=== PATIENT | male | born 1970 | race Two or more races ===

== ENCOUNTER 2016-10-29 14:01 | Emergency (ER) | payer OTHER ==
--- NOTE | ~2016-10-29 | CT71 ---
[facility] A Service [facility] RADIOLOGY TEXT RESULTS PATIENT: JASMINA MOTA LOCATION: SED : 66 UNIT #: [id number] AGE: [address]: Christian Santacruz MD SEX: M ORDER DR: [id number] [address] [address] [id number] E MR#: [id number] Acc #: [id number] NAME: JASMINA MOTA : 1970 SEX: M STUDY DATE/TIME: 10/29/2016 13:35 UNIT: SED ROOM: STUDY DESCRIPTION: CT Head Wo Contrast Attending Physician: Christian Santacruz M.D. Ordering Physician: Christian Santacruz M.D. Primary Care Physician: [facility] MEDICAL IMAGING REPORT This report is preliminary unless electronic signature is present. EXAM Head CT without contrast, 10/29/2016. COMPARISON STUDIES Head CT, 06/03/2016. HISTORY Hypertension, dizziness for 2 weeks. TECHNIQUE Axial noncontrast images were obtained from the skull base to the vertex. This CT exam was performed with one or more of the following radiation dose reduction techniques: automatic exposure control, adjustment of mA and/or kV according to patient size, and iterative reconstruction. FINDINGS Ventricular size and configuration are normal. There is no evidence of acute infarct or hemorrhage. There are no extraaxial fluid collections. No mass lesion or mass effect is seen. There are no skull fractures. IMPRESSION Normal noncontrast head CT. Dictated by... Juliet Samaniego M.D. THIS IS AN ELECTRONICALLY VERIFIED REPORT Juliet Samaniego M.D. at 10/30/2016 5:01 PM JENNIFER/inder [facility] A [facility] RADIOLOGY TEXT RESULTS PATIENT: JASMINA MOTA LOCATION: SED : 66 UNIT #: [id number] AGE: [address]: Christian Santacruz MD SEX: M ORDER DR: TD: 10/29/2016 17:14 JOB #: [id number] MEDICAL IMAGING REPORT
--- NOTE | ~2016-10-29 | EKG ---
PATIENT: JASMINA MOTA UNIT #: [id number] Ventricular Rate: 73 BPM Atrial Rate: 73 BPM P-R Interval: 168 ms QRS Duration: 74 ms Q-T Interval: 398 ms QTC Calculation(Bezet): 438 ms P [place]: 68 degrees Calculated R [place]: 40 degrees Calculated T [place]: 53 degrees Diagnosis Line: Normal sinus rhythm Diagnosis Line: Normal ECG Diagnosis Line: Diagnosis Line: Confirmed by JAMES COBOS MD ([id number]) on Diagnosis Line: 12/12/2016 7:00:52 AM INTERPRETING JATINDER DELATORRE
[2016-10-29 14:01] LABS: BASOPHIL# 0.1 X10e3 (0-0.3); BASOPHIL% 0.8 % (0-2.5); EOSINOPHIL# 0.2 X10e3 (0-0.7); EOSINOPHIL% 3.6 % (0.0-7.0); HEMATOCRIT 40.6 % (38.0-50.0); HEMOGLOBIN 12.9 gm/dL (13.0-16.0); LYMPHOCYTE# 1.8 X10e3 (1.0-3.5); LYMPHOCYTE% 26.5 % (17.0-45.0); MEAN CELL VOLUME 72.7 FL (83-96); MEAN CORPUSCULAR HGB CONC 31.7 g/dL (30-36); MONOCYTE# 0.8 X10e3 (0-1.0); MONOCYTE% 11.8 % (3.0-12.0); NEUTROPHIL# 3.8 X10e3 (1.5-7.1); NEUTROPHIL% 57.3 % (40-75); PLATELET COUNT 273 X10e3 (140-420); RED BLOOD COUNT 5.58 X10e (3.90-5.60); RED CELL DISTRIBUTION WIDTH 16.2 % (11.0-15.5); WHITE BLOOD COUNT 6.7 X10e3 (4.0-10.5)
[~2016-10-29 14:01] MED LIST: ACID CONTROL20 MG PO; ALBUTEROL17 GM INH; AMOXICILLIN PO; BARACLUDE0.5 MG PO; CARVEDILOL12.5 MG PO; COREG6.25 MG PO; DILTIAZEM 24HR120 MG PO; FLECAINIDE ACET50 MG PO; HYDROCHLOROTHIA25 MG PO; K-DUR20 ME2 PO; KCL PO; LIPITOR20 MG PO; MONTELUKAST SOD10 MG PO; PANTOPRAZOLE SO40 MG PO; PHENERGAN25 M1 PO; PRADAXA150 MG PO; PROTONIX PO; SINGULAIR PO; SYMBICORT INH; SYMBICORT80 INH; VIREAD300 MG PO; ZOFRAN ODT4 MG PO; ZOFRAN PO; ZYRTEC10 M1 PO
[2016-10-29 14:04] LABS: DIFF IND NO
[2016-10-29 14:18] LABS: POC - CKMB <1.0 ng/mL (0.0-7.9); POC - MYOGLOBIN 72.3 ng/mL (0.0-169.0)
[2016-10-29 14:19] LABS: POC - TROPONIN <0.05 ng/mL (<=0.05)
[2016-10-29 14:31] LABS: ALBUMIN SERUM 3.6 g/dL (3.5-5.0); ALKALINE PHOSPHATASE 56 U/L (32-92); ALT (SGPT) 23 U/L (10-40); AST (SGOT) 19 U/L (10-42); BILIRUBIN, DIRECT 0.1 mg/dL (0.0-0.2); BILIRUBIN,INDIRECT 0.5 mg/dL (0.0-0.9); BILIRUBIN,TOTAL 0.6 mg/dL (0.2-2.0); BLOOD UREA NITROGEN 13 mg/dL (9-23); BUN/CREATININE RATIO 14.44; CALCIUM SERUM 8.8 mg/dL (8.4-10.2); CARBON DIOXIDE 27 mmol/L (22-31); CHLORIDE 102 mmol/L (100-111); CREATININE SERUM 0.9 mg/dL (0.6-1.4); GLOM FILT RATE Estimated ABOVE60 mL/min (>60); GLUCOSE FASTING 113 mg/dL (70-110); POTASSIUM 3.5 mmol/L (3.5-5.1); PROTEIN TOTAL SERUM 6.6 g/dL (6.0-8.3); SODIUM 137 mmol/L (135-145)
[2016-11-10] MEDS ORDERED: NORVASC PO (18:09)
== END 2016-10-29 15:04 | disposition home or self-care (01) ==
LOC: SED 14:01
PROVIDERS: Emergency Medicine
DX: I10 Essential (primary) hypertension (principal); I48.91 Unspecified atrial fibrillation; J45.909 Unspecified asthma, uncomplicated; Z88.8 Allergy status to other drugs, medicaments and biological substances
CPT/HCPCS: 36415; 70450; 80048; 80076; 82553; 82947; 83874; 84484; 85025; 93005; 99284

== ENCOUNTER 2016-10-30 23:19 | Emergency (ER) | payer OTHER ==
[2016-11-10] MEDS ORDERED: NORVASC PO (18:09)
== END 2016-10-30 23:40 | disposition home or self-care (01) ==
LOC: CED 23:19
DX: I10 Essential (primary) hypertension (principal); F41.9 Anxiety disorder, unspecified
CPT/HCPCS: 99283

== ENCOUNTER 2016-11-10 19:34 | Emergency (ER) | payer OTHER ==
[~2016-11-10 19:34] MED LIST changes: +NORVASC PO
== END 2016-11-10 21:36 | disposition home or self-care (01) ==
LOC: CED 19:34
DX: R51 Headache (principal); G89.29 Other chronic pain; F41.9 Anxiety disorder, unspecified; J45.909 Unspecified asthma, uncomplicated; I10 Essential (primary) hypertension; K21.9 Gastro-esophageal reflux disease without esophagitis; I48.91 Unspecified atrial fibrillation; Z88.8 Allergy status to other drugs, medicaments and biological substances
CPT/HCPCS: 96361; 96374; 96375; 99284; J1200; J1885; J2765

== ENCOUNTER 2016-11-19 23:59 | Emergency (ER) | payer OTHER ==
--- NOTE | ~2016-11-19 | EKG ---
PATIENT: JASMINA MOTA UNIT #: [id number] Ventricular Rate: 80 BPM Atrial Rate: 80 BPM P-R Interval: 170 ms QRS Duration: 80 ms Q-T Interval: 390 ms QTC Calculation(Bezet): 449 ms P [place]: 60 degrees Calculated R [place]: 39 degrees Calculated T [place]: 50 degrees Diagnosis Line: Normal sinus rhythm Diagnosis Line: Normal ECG Diagnosis Line: When compared with ECG of 29-OCT-2016 14:05, Diagnosis Line: (unconfirmed) Diagnosis Line: No significant change was found Diagnosis Line: Confirmed by ANNETTE DRAKE MD ([id number]) on 11/20/2016 Diagnosis Line: 9:20:17 PM INTERPRETING MD: NOELLE PHAN
--- NOTE | ~2016-11-19 | CR72 ---
[facility] A Service of [facility] RADIOLOGY TEXT RESULTS PATIENT: JASMINA MOTA LOCATION: [facility] : [birth year] UNIT #: [id number] AGE: [address]: Rickey Ceballos MD SEX: M ORDER DR: [id number] [facility] [address] [place], [place] [address] [id number] E MR#: [id number] Acc #: [id number] NAME: JASMINA MOTA : 1970 SEX: M STUDY DATE/TIME: 11/20/2016 2:10 UNIT: [facility] ROOM: STUDY DESCRIPTION: CR Chest Single View Portable Attending Physician: Rickey Ceballos M.D. Ordering Physician: Riceky Ceballos M.D. Primary Care Physician: [facility] MEDICAL IMAGING REPORT This report is preliminary unless electronic signature is present EXAM Frontal chest, 11/20/2016 INDICATION 46-year-old male with heart palpitations for 2 days, nausea, short of air, hepatitis B and asthma. TECHNIQUE Frontal chest COMPARISON 09/27/2016 FINDINGS Cardiac silhouette is within normal limits. Vascularity is normal. Lung volumes are low, but the lungs are otherwise clear. No pneumothorax. IMPRESSION Low volume image, otherwise negative frontal chest. Dictated by... Pantera Ingram M.D. THIS IS AN ELECTRONICALLY VERIFIED REPORT Pantera Ingram M.D. at 11/20/2016 9:52 PM Keely TD: 11/20/2016 08:06 JOB #: [id number] MEDICAL IMAGING REPORT Page 1 of 1 COPY
[2016-11-19 22:40] LABS: BASOPHIL# 0.1 X10e3 (0-0.3); BASOPHIL% 0.8 % (0-2.5); EOSINOPHIL# 0.5 X10e3 (0-0.7); EOSINOPHIL% 4.9 % (0.0-7.0); HEMATOCRIT 42.2 % (38.0-50.0); HEMOGLOBIN 13.4 gm/dL (13.0-16.0); LYMPHOCYTE# 2.6 X10e3 (1.0-3.5); LYMPHOCYTE% 28.4 % (17.0-45.0); MEAN CELL VOLUME 73.2 FL (83-96); MEAN CORPUSCULAR HEMOGLOBIN 23.3 PG (28-34); MEAN CORPUSCULAR HGB CONC 31.8 g/dL (30-36); MEAN PLATELET VOLUME 8.4 FL (6.5-11.5); MONOCYTE% 10.5 % (3.0-12.0); NEUTROPHIL# 5.1 X10e3 (1.5-7.1); NEUTROPHIL% 55.4 % (40-75); PLATELET COUNT 297 X10e3 (140-420); RED BLOOD COUNT 5.76 X10e (3.90-5.60); RED CELL DISTRIBUTION WIDTH 16.9 % (11.0-15.5); WHITE BLOOD COUNT 9.3 X10e3 (4.0-10.5)
[2016-11-19 22:41] LABS: DIFF IND NO
[2016-11-19 23:16] LABS: ALBUMIN SERUM 3.6 g/dL (3.5-5.0); BILIRUBIN, DIRECT 0.1 mg/dL (0.0-0.2); BILIRUBIN,INDIRECT 0.4 mg/dL (0.0-0.9); BILIRUBIN,TOTAL 0.5 mg/dL (0.2-2.0); BUN/CREATININE RATIO 13.33; CALCIUM SERUM 8.9 mg/dL (8.4-10.2); CREATININE SERUM 0.9 mg/dL (0.6-1.4); GLOM FILT RATE Estimated 100.6 mL/min (>60); POTASSIUM 3.7 mmol/L (3.5-5.1); PROTEIN TOTAL SERUM 6.7 g/dL (6.0-8.3)
[2016-11-20 00:58] LABS: POC - CKMB <1.0 ng/mL (0.0-7.9); POC - TROPONIN <0.05 ng/mL (<=0.05)
[2016-11-20 01:22] LABS: URINE SOURCE CLEAN CATCH
[2016-11-20 01:29] LABS: URINE APPEARANCE CLEAR; URINE BILIRUBIN NEG (NEG); URINE BLOOD 1+ (NEG); URINE COLOR YELLOW; URINE GLUCOSE NEG (NEG); URINE KETONE NEG (NEG); URINE LEUKOCYTE ESTERASE NEG (NEG); URINE NITRATE NEG (NEG); URINE PROTEIN NEG (NEG); URINE SPECIFIC GRAVITY 1.004 (1.003-1.035); URINE UROBILINOGEN 0.2 MG/DL (NEG)
[2016-11-20 01:32] LABS: URBCS1 AUWI 0-2 /[HPF] (0-2); URINE BACTERIA AUWI NEG (NEGATIVE); URINE SQUAMOUS EPITHELIAL CELL NONE SEEN /[HPF]; UWBCS1 AUWI 0-2 (0-5)
[2016-11-20 01:33] LABS: CULTURE INDICATED? NO
== END 2016-11-20 03:29 | disposition home or self-care (01) ==
LOC: CED 23:59
PROVIDERS: Emergency Medicine
DX: R00.2 Palpitations (principal); R42 Dizziness and giddiness; R11.0 Nausea; K21.9 Gastro-esophageal reflux disease without esophagitis; Z88.8 Allergy status to other drugs, medicaments and biological substances; Z79.899 Other long term (current) drug therapy
CPT/HCPCS: 36415; 71010; 80048; 80076; 81003; 82150; 82553; 83690; 84484; 85025; 93005; 99283

== ENCOUNTER 2016-12-02 23:36 | Emergency (ER) | payer OTHER | END 2016-12-02 23:57 | disposition left against medical advice (07) | LOC: CED 23:36 | DX: Z53.21 Procedure and treatment not carried out due to patient leaving prior to being seen by health care provider (principal) ==

== ENCOUNTER 2016-12-06 23:57 | Emergency (ER) | payer OTHER ==
--- NOTE | ~2016-12-06 | EKG ---
PATIENT: JASMINA MOTA UNIT #: [id number] Ventricular Rate: 77 BPM Atrial Rate: 77 BPM P-R Interval: 152 ms QRS Duration: 78 ms Q-T Interval: 386 ms QTC Calculation(Bezet): 436 ms P [place]: 43 degrees Calculated R [place]: 55 degrees Calculated T [place]: 61 degrees Diagnosis Line: Normal sinus rhythm Diagnosis Line: lead switch V1-V2 and V3 Diagnosis Line: Normal ECG Diagnosis Line: When compared with ECG of 20-NOV-2016 00:22, Diagnosis Line: No significant change was found Diagnosis Line: Confirmed by HOMERO CANCHOLA MD ([id number]) on 12/08/2016 Diagnosis Line: 7:10:42 AM INTERPRETING MD: JESIKA PHAN
--- NOTE | ~2016-12-06 | CR72 ---
[facility] A Service of [facility] RADIOLOGY TEXT RESULTS PATIENT: JASMINA MOTA LOCATION: [facility] : [birth year] UNIT #: [id number] AGE: [address]: Rajeev Bran MD SEX: M ORDER DR: [id number] [facility] [address] [place], [place] [address] [id number] E MR#: [id number] Acc #: [id number] NAME: JASMINA MOTA : 1970 SEX: M STUDY DATE/TIME: 12/06/2016 23:38 UNIT: [facility] ROOM: STUDY DESCRIPTION: CR Chest Single View Portable Attending Physician: Rajeev Bran M.D. Ordering Physician: Rajeev Bran M.D. Primary Care Physician: [facility] MEDICAL IMAGING REPORT This report is preliminary unless electronic signature is present EXAM Portable chest. INDICATIONS Chest pain and ankle swelling and nausea and dizziness today. FINDINGS A portable view of the chest is obtained and compared with 11/20/2016. The heart size and vascularity are normal. The lungs are clear and the bones are unremarkable. IMPRESSION No active disease. Dictated by... Ryan Kirby M.D. THIS IS AN ELECTRONICALLY VERIFIED REPORT Ryan Kirby M.D. at 12/07/2016 8:04 PM IMMANUEL/gladis TD: 12/07/2016 14:31 JOB #: [id number] MEDICAL IMAGING REPORT Page 1 of 1 COPY
[2016-12-06 22:52] LABS: BASOPHIL# 0.1 X10e3 (0-0.3); BASOPHIL% 0.7 % (0-2.5); EOSINOPHIL# 0.3 X10e3 (0-0.7); EOSINOPHIL% 3.6 % (0.0-7.0); HEMATOCRIT 41.6 % (38.0-50.0); HEMOGLOBIN 13.1 gm/dL (13.0-16.0); LYMPHOCYTE# 2.8 X10e3 (1.0-3.5); LYMPHOCYTE% 31.9 % (17.0-45.0); MEAN CELL VOLUME 73.8 FL (83-96); MEAN CORPUSCULAR HEMOGLOBIN 23.2 PG (28-34); MEAN CORPUSCULAR HGB CONC 31.4 g/dL (30-36); MEAN PLATELET VOLUME 8.1 FL (6.5-11.5); MONOCYTE% 11.6 % (3.0-12.0); NEUTROPHIL# 4.5 X10e3 (1.5-7.1); NEUTROPHIL% 52.2 % (40-75); PLATELET COUNT 281 X10e3 (140-420); RED BLOOD COUNT 5.64 X10e (3.90-5.60); RED CELL DISTRIBUTION WIDTH 17.3 % (11.0-15.5); WHITE BLOOD COUNT 8.7 X10e3 (4.0-10.5)
[2016-12-06 22:54] LABS: DIFF IND NO
[2016-12-06 23:15] LABS: ALBUMIN SERUM 3.8 g/dL (3.5-5.0); BILIRUBIN, DIRECT 0.1 mg/dL (0.0-0.2); BILIRUBIN,INDIRECT 0.5 mg/dL (0.0-0.9); BILIRUBIN,TOTAL 0.6 mg/dL (0.2-2.0); CALCIUM SERUM 9.2 mg/dL (8.4-10.2); CREATININE SERUM 0.9 mg/dL (0.6-1.4); GLOM FILT RATE Estimated 100.6 mL/min (>60); POTASSIUM 3.9 mmol/L (3.5-5.1); PROTEIN TOTAL SERUM 6.6 g/dL (6.0-8.3)
[2016-12-06 23:55] LABS: POC - CKMB <1.0 ng/mL (0.0-7.9); POC - TROPONIN <0.05 ng/mL (<=0.05)
== END 2016-12-07 00:28 | disposition home or self-care (01) ==
LOC: CED 23:57
PROVIDERS: Emergency Medicine
DX: R42 Dizziness and giddiness (principal); F41.9 Anxiety disorder, unspecified; I48.91 Unspecified atrial fibrillation; J45.909 Unspecified asthma, uncomplicated; Z88.8 Allergy status to other drugs, medicaments and biological substances
CPT/HCPCS: 36415; 71010; 80048; 80076; 82553; 82947; 84484; 85025; 93005; 96361; 96374; 96375; 99284; J2060; J2405

== ENCOUNTER 2016-12-31 20:34 | Emergency (ER) | payer OTHER ==
--- NOTE | ~2016-12-31 | CT71 ---
[facility] A Service of [facility] RADIOLOGY TEXT RESULTS PATIENT: JASMINA MOTA LOCATION: TED : 66 UNIT #: [id number] AGE: [address]: Rickey Pettit MD SEX: M ORDER DR: [id number] [facility] [address] [place], [place] [address] [id number] E MR#: [id number] Acc #: [id number] NAME: JASMINA MOTA : 1970 SEX: M STUDY DATE/TIME: 12/31/2016 22:39 UNIT: TED ROOM: STUDY DESCRIPTION: CT Head Wo Contrast Attending Physician: Rickey Pettit Ordering Physician: Ed Ross Naranjo M.D. Primary Care Physician: [facility] MEDICAL IMAGING REPORT This report is preliminary unless electronic signature is present EXAM CT brain without contrast HISTORY Dizzy and nausea today. This CT exam was performed with one or more of the following radiation dose reduction techniques: automatic exposure control, adjustment of mA and/or kV according to patient size, and iterative reconstruction. FINDINGS Axial noncontrast images were obtained from the skull base to the vertex. Ventricular size and configuration are normal. There is no evidence of acute infarct or hemorrhage. There are no extra-axial fluid collections. No mass lesion or mass effect is seen. There are no skull fractures. IMPRESSION Normal noncontrast head CT. Dictated by... Roman Jonas M.D. THIS IS AN ELECTRONICALLY VERIFIED REPORT Roman Jonas M.D. at 12/31/2016 11:19 PM DFL/brenden TD: 12/31/2016 23:08 JOB #: [id number] MEDICAL IMAGING REPORT [facility] A Service [facility] RADIOLOGY TEXT RESULTS PATIENT: JASMINA MOTA LOCATION: [facility] : 66 UNIT #: [id number] AGE: [address]: Rickey Pettit MD SEX: M ORDER DR: Page 1 of 1 COPY
--- NOTE | ~2016-12-31 | EKG ---
PATIENT: JASMINA MOTA UNIT #: [id number] Ventricular Rate: 87 BPM Atrial Rate: 87 BPM P-R Interval: 164 ms QRS Duration: 76 ms Q-T Interval: 368 ms QTC Calculation(Bezet): 442 ms P [place]: 55 degrees Calculated R [place]: 22 degrees Calculated T [place]: 45 degrees Diagnosis Line: Normal sinus rhythm Diagnosis Line: Normal ECG Diagnosis Line: When compared with ECG of 06-DEC-2016 23:25, Diagnosis Line: No significant change was found Diagnosis Line: Confirmed by ANNETTE DRAKE MD ([id number]) on 01/01/2017 Diagnosis Line: 10:06:33 AM INTERPRETING MD: NOELLE PHAN
[2016-12-31] MEDS ORDERED: ALLERGY RELIEF10 M6 PO (20:40)
[2016-12-31] MEDS ORDERED: PRADAXA150 MG PO (20:41)
[2016-12-31] MEDS ORDERED: EFFER-K 20 MEQ20 MEQ PO (20:41)
[2016-12-31] MEDS ORDERED: PHENERGAN25 M1 PO (20:41)
[2016-12-31] MEDS ORDERED: FLECAINIDE ACET50 MG PO (20:42)
[2016-12-31] MEDS ORDERED: BENTYL10 M1 PO (20:42)
[2016-12-31] MEDS ORDERED: PROTONIX PO (20:42)
[2016-12-31] MEDS ORDERED: COREG6.25 MG PO (20:43)
[2016-12-31] MEDS ORDERED: SINGULAIR PO (20:43)
[2016-12-31] MEDS ORDERED: BREO ELLIPTA 21 EACH INH (20:43)
[2016-12-31] MEDS ORDERED: NORVASC PO (20:43)
[2016-12-31 21:10] LABS: POC - CKMB 1.1 ng/mL (0.0-7.9); POC - TROPONIN <0.05 ng/mL (<=0.05)
[2016-12-31 22:05] LABS: BASOPHIL# 0.1 X10e3 (0-0.3); BASOPHIL% 0.6 % (0-2.5); EOSINOPHIL# 0.2 X10e3 (0-0.7); HEMATOCRIT 43.2 % (38.0-50.0); HEMOGLOBIN 13.9 gm/dL (13.0-16.0); LYMPHOCYTE# 2.7 X10e3 (1.0-3.5); LYMPHOCYTE% 31.1 % (17.0-45.0); MEAN CELL VOLUME 72.8 FL (83-96); MEAN CORPUSCULAR HEMOGLOBIN 23.4 PG (28-34); MEAN CORPUSCULAR HGB CONC 32.1 g/dL (30-36); MEAN PLATELET VOLUME 8.3 FL (6.5-11.5); MONOCYTE% 11.3 % (3.0-12.0); NEUTROPHIL# 4.8 X10e3 (1.5-7.1); PLATELET COUNT 328 X10e3 (140-420); RED BLOOD COUNT 5.94 X10e (3.90-5.60); RED CELL DISTRIBUTION WIDTH 16.5 % (11.0-15.5); WHITE BLOOD COUNT 8.6 X10e3 (4.0-10.5)
[2016-12-31 22:15] LABS: DIFF IND NO
[2016-12-31 22:27] LABS: BUN/CREATININE RATIO 12.5; CALCIUM SERUM 9.1 mg/dL (8.4-10.2); CREATININE SERUM 0.8 mg/dL (0.6-1.4); GLOM FILT RATE Estimated 105.7 mL/min (>60); POTASSIUM 3.7 mmol/L (3.5-5.1)
== END 2017-01-01 00:32 | disposition home or self-care (01) ==
LOC: CED 20:34
PROVIDERS: Emergency Medicine
DX: F41.9 Anxiety disorder, unspecified (principal); I10 Essential (primary) hypertension; J45.909 Unspecified asthma, uncomplicated; Z86.19 Personal history of other infectious and parasitic diseases; Z88.8 Allergy status to other drugs, medicaments and biological substances; Z79.899 Other long term (current) drug therapy
CPT/HCPCS: 70450; 80048; 82553; 84484; 85025; 93005; 96374; 99284; J2405

== ENCOUNTER 2017-03-31 19:57 | Emergency (ER) | payer OTHER ==
[~2017-03-31] VITALS: Ht 170.2 cm; Wt 71.2 kg
--- NOTE | ~2017-03-31 | CT71 ---
[facility] A Service of [facility] RADIOLOGY TEXT RESULTS PATIENT: JASMINA MOTA LOCATION: TED : 66 UNIT #: [id number] AGE: [address]: Rajeev Bran MD SEX: M ORDER DR: [id number] [facility] [address] [place], [place] [address] [id number] E MR#: [id number] Acc #: [id number] NAME: JASMINA MOTA : 1970 SEX: M STUDY DATE/TIME: 03/31/2017 21:12 UNIT: TED ROOM: STUDY DESCRIPTION: CT Head Wo Contrast Attending Physician: Rajeev Bran M.D. Ordering Physician: Andie Wolfe M.D. Primary Care Physician: [facility] MEDICAL IMAGING REPORT This report is preliminary unless electronic signature is present EXAM CT head, noncontrast, 03/31/2017. HISTORY 47-year-old male in the ED complaining of lightheadedness and nausea beginning about 1 hour prior to arrival. Elevated blood pressure is noted. TECHNIQUE CT examination of the head without IV contrast. This CT exam was performed with one or more of the following radiation dose reduction techniques: automatic exposure control, adjustment of mA and/or kV according to patient size, and iterative reconstruction. COMPARISON CT head, 12/31/2016. FINDINGS The examination is negative. No evidence of intracranial hemorrhage, mass, mass effect, cerebral edema, hydrocephalus or additional abnormality. No change since the prior examination. IMPRESSION Negative head CT examination. No change since 12/31/2016. Dictated by... Daniel Hunter M.D. THIS IS AN ELECTRONICALLY VERIFIED REPORT Daniel Hunter M.D. at 04/01/2017 10:00 PM RGW/tracey TD: 04/01/2017 11:02 [facility] A Service of [facility] RADIOLOGY TEXT RESULTS PATIENT: JASMINA MOTA LOCATION: TED : 66 UNIT #: [id number] AGE: [address]: Rajeev Bran MD SEX: M ORDER DR: JOB #: [id number] MEDICAL IMAGING REPORT Page 1 of 1 COPY
--- NOTE | ~2017-03-31 | EKG ---
PATIENT: JASMINA MOTA UNIT #: [id number] Ventricular Rate: 123 BPM Atrial Rate: 123 BPM P-R Interval: 148 ms QRS Duration: 74 ms Q-T Interval: 324 ms QTC Calculation(Bezet): 463 ms P [place]: 70 degrees Calculated R [place]: 52 degrees Calculated T [place]: 68 degrees Diagnosis Line: Sinus tachycardia Diagnosis Line: Otherwise normal ECG Diagnosis Line: When compared with ECG of 31-MAR-2017 20:56, Diagnosis Line: (unconfirmed) Diagnosis Line: No significant change was found Diagnosis Line: Confirmed by HOMERO CANCHOLA MD ([id number]) on 04/01/2017 Diagnosis Line: 11:52:19 PM INTERPRETING MD: JESIKA PHAN
--- NOTE | ~2017-03-31 | EKG ---
PATIENT: JASMINA MOTA UNIT #: [id number] Ventricular Rate: 94 BPM Atrial Rate: 94 BPM P-R Interval: 164 ms QRS Duration: 72 ms Q-T Interval: 358 ms QTC Calculation(Bezet): 447 ms P [place]: 69 degrees Calculated R [place]: 56 degrees Calculated T [place]: 66 degrees Diagnosis Line: Normal sinus rhythm Diagnosis Line: Normal ECG Diagnosis Line: No previous ECGs available Diagnosis Line: Confirmed by HOMERO CANCHOLA MD ([id number]) on 04/01/2017 Diagnosis Line: 11:50:06 PM INTERPRETING MD: JESIKA PHAN
[~2017-03-31 19:57] MED LIST changes: +ALLERGY RELIEF10 M6 PO; +BENTYL10 M1 PO; +BREO ELLIPTA 21 EACH INH; +EFFER-K 20 MEQ20 MEQ PO
[2017-03-31 21:03] LABS: BASOPHIL# 0.1 X10e3 (0-0.3); BASOPHIL% 0.7 % (0-2.5); DIFF IND NO; EOSINOPHIL# 0.3 X10e3 (0-0.7); EOSINOPHIL% 2.6 % (0.0-7.0); HEMATOCRIT 38.8 % (38.0-50.0); HEMOGLOBIN 12.4 gm/dL (13.0-16.0); LYMPHOCYTE# 2.6 X10e3 (1.0-3.5); LYMPHOCYTE% 27.4 % (17.0-45.0); MEAN CELL VOLUME 73.6 FL (83-96); MEAN CORPUSCULAR HEMOGLOBIN 23.5 PG (28-34); MONOCYTE# 1.2 X10e3 (0-1.0); MONOCYTE% 12.9 % (3.0-12.0); NEUTROPHIL# 5.4 X10e3 (1.5-7.1); NEUTROPHIL% 56.4 % (40-75); PLATELET COUNT 326 X10e3 (140-420); RED BLOOD COUNT 5.27 X10e (3.90-5.60); RED CELL DISTRIBUTION WIDTH 17.2 % (11.0-15.5); WHITE BLOOD COUNT 9.6 X10e3 (4.0-10.5)
[2017-03-31 21:15] LABS: INR 1.2; PARTIAL THROMBOPLASTIN TIME 38.2 SECONDS (23.5-31.3); PROTHROMBIN TIME (PATIENT) 13.4 SECONDS (10.0-11.7)
[2017-03-31 22:05] LABS: ALBUMIN SERUM 3.4 g/dL (3.5-5.0); BILIRUBIN, DIRECT 0.1 mg/dL (0.0-0.2); BILIRUBIN,INDIRECT 0.6 mg/dL (0.0-0.9); BILIRUBIN,TOTAL 0.7 mg/dL (0.2-2.0); CALCIUM SERUM 8.7 mg/dL (8.4-10.2); MAGNESIUM 1.7 mg/dL (1.6-3.0); POTASSIUM 3.6 mmol/L (3.5-5.1); PROTEIN TOTAL SERUM 6.5 g/dL (6.0-8.3)
[2017-03-31 22:23] LABS: POC - CKMB 1.2 ng/mL (0.0-7.9); POC - TROPONIN <0.05 ng/mL (<=0.05)
[2017-03-31 23:19] LABS: POC - TROPONIN <0.05 ng/mL (<=0.05)
== END 2017-04-01 00:04 | disposition home or self-care (01) ==
LOC: CED 19:57
PROVIDERS: Emergency Medicine; Student in an Organized Health Care Education/Training Program
DX: R55 Syncope and collapse (principal); F41.9 Anxiety disorder, unspecified; I10 Essential (primary) hypertension; R11.0 Nausea; J45.909 Unspecified asthma, uncomplicated; K21.9 Gastro-esophageal reflux disease without esophagitis; Z88.8 Allergy status to other drugs, medicaments and biological substances; Z79.899 Other long term (current) drug therapy; Z86.19 Personal history of other infectious and parasitic diseases
CPT/HCPCS: 36415; 70450; 80048; 80076; 82553; 83735; 83880; 84484; 85025; 85610; 85730; 93005; 96361; 96374; 96375; 99284; J0360; J2405

== ENCOUNTER 2017-04-09 18:05 | Emergency (ER) | payer OTHER ==
[~2017-04-09] VITALS: Ht 172.7 cm; Wt 68.0 kg
--- NOTE | ~2017-04-09 | EKG ---
PATIENT: JASMINA MOTA UNIT #: [id number] Ventricular Rate: 101 BPM Atrial Rate: 101 BPM P-R Interval: 168 ms QRS Duration: 76 ms Q-T Interval: 354 ms QTC Calculation(Bezet): 459 ms P [place]: 53 degrees Calculated R [place]: 21 degrees Calculated T [place]: 49 degrees Diagnosis Line: Sinus tachycardia Diagnosis Line: Otherwise normal ECG Diagnosis Line: When compared with ECG of 31-MAR-2017 22:45, Diagnosis Line: No significant change was found Diagnosis Line: Confirmed by JAMES COBOS MD ([id number]) on Diagnosis Line: 04/09/2017 10:52:19 PM INTERPRETING MD: NANDINI
--- NOTE | ~2017-04-09 | CR72 ---
[facility] A Service of [facility] & [facility] RADIOLOGY TEXT RESULTS PATIENT: JASMINA MOTA LOCATION: [facility] : [birth year] UNIT #: [id number] AGE: [address]: Anthony Ortega MD SEX: M ORDER DR: [id number] [facility] [address] [place], [place] [address] [id number] E MR#: [id number] Acc #: [id number] NAME: JASMINA MOTA : 1970 SEX: M STUDY DATE/TIME: 04/09/2017 21:25 UNIT: [facility] ROOM: STUDY DESCRIPTION: CR Chest Single View Portable Attending Physician: Anthony Ortega M.D. Ordering Physician: Anthony Ortega M.D. Primary Care Physician: On [facility] Of [facility] MEDICAL IMAGING REPORT This report is preliminary unless electronic signature is present EXAM Portable chest, 04/09/2017 at 21:25 INDICATION Cough and shortness of air today. History of hypertension. Comparison 12/06/2016 FINDINGS A single AP portable view of the chest shows both lungs to be clear. The heart is normal in size. The mediastinal contour is normal. No significant bone abnormalities are seen. IMPRESSION Normal portable chest. Dictated by... Derick Morelos Jr., M.D. THIS IS AN ELECTRONICALLY VERIFIED REPORT Derick Morelos Jr., M.D. at 04/10/2017 6:03 AM ZAC/brenden TD: 04/10/2017 04:31 JOB #: [id number] MEDICAL IMAGING REPORT Page 1 of 1 COPY
[2017-04-09 18:38] LABS: BASOPHIL% 0.5 % (0-2.5); DIFF IND NO; EOSINOPHIL# 0.2 X10e3 (0-0.7); EOSINOPHIL% 2.2 % (0.0-7.0); HEMATOCRIT 40.2 % (38.0-50.0); HEMOGLOBIN 12.7 gm/dL (13.0-16.0); LYMPHOCYTE# 2.2 X10e3 (1.0-3.5); LYMPHOCYTE% 24.4 % (17.0-45.0); MEAN CELL VOLUME 74.3 FL (83-96); MEAN CORPUSCULAR HEMOGLOBIN 23.5 PG (28-34); MEAN CORPUSCULAR HGB CONC 31.7 g/dL (30-36); MEAN PLATELET VOLUME 8.1 FL (6.5-11.5); MONOCYTE# 1.2 X10e3 (0-1.0); MONOCYTE% 13.2 % (3.0-12.0); NEUTROPHIL# 5.3 X10e3 (1.5-7.1); NEUTROPHIL% 59.7 % (40-75); PLATELET COUNT 326 X10e3 (140-420); RED BLOOD COUNT 5.42 X10e (3.90-5.60); RED CELL DISTRIBUTION WIDTH 17.2 % (11.0-15.5); WHITE BLOOD COUNT 8.9 X10e3 (4.0-10.5)
[2017-04-09 19:00] LABS: ALBUMIN SERUM 3.8 g/dL (3.5-5.0); BILIRUBIN, DIRECT 0.1 mg/dL (0.0-0.2); BILIRUBIN,INDIRECT 0.4 mg/dL (0.0-0.9); BILIRUBIN,TOTAL 0.5 mg/dL (0.2-2.0); BUN/CREATININE RATIO 17.5; CALCIUM SERUM 9.1 mg/dL (8.4-10.2); CREATININE SERUM 0.8 mg/dL (0.6-1.4); GLOM FILT RATE Estimated 104.9 mL/min (>60); POTASSIUM 3.5 mmol/L (3.5-5.1); PROTEIN TOTAL SERUM 6.8 g/dL (6.0-8.3)
[2017-04-09 21:34] LABS: POC - CKMB <1.0 ng/mL (0.0-7.9); POC - TROPONIN <0.05 ng/mL (<=0.05)
[2017-04-09 23:07] LABS: POC - CKMB <1.0 ng/mL (0.0-7.9); POC - TROPONIN <0.05 ng/mL (<=0.05)
[2017-04-09 23:23] LABS: URINE SOURCE CLEAN CATCH
[2017-04-09 23:26] LABS: URINE APPEARANCE CLEAR; URINE BILIRUBIN NEG (NEG); URINE BLOOD NEG (NEG); URINE COLOR YELLOW; URINE GLUCOSE NEG (NEG); URINE KETONE NEG (NEG); URINE LEUKOCYTE ESTERASE NEG (NEG); URINE NITRATE NEG (NEG); URINE PROTEIN NEG (NEG); URINE SPECIFIC GRAVITY 1.007 (1.003-1.035); URINE UROBILINOGEN 0.2 MG/DL (NEG)
[2017-04-09 23:30] LABS: CULTURE INDICATED? NO
== END 2017-04-09 23:50 | disposition home or self-care (01) ==
LOC: CED 18:05
PROVIDERS: Emergency Medicine
DX: R42 Dizziness and giddiness (principal); F41.9 Anxiety disorder, unspecified; I10 Essential (primary) hypertension; F17.210 Nicotine dependence, cigarettes, uncomplicated; Z88.8 Allergy status to other drugs, medicaments and biological substances
CPT/HCPCS: 36415; 71010; 80048; 80076; 81003; 82553; 84484; 85025; 93005; 96360; 99284

== ENCOUNTER 2017-04-17 11:21 | Emergency (ER) | payer OTHER ==
[~2017-04-17] VITALS: Ht 170.2 cm; Wt 71.7 kg
--- NOTE | ~2017-04-17 | US85 ---
[facility] A Service of [facility] RADIOLOGY TEXT RESULTS PATIENT: JASMINA MOTA LOCATION: [place] : [birth year] UNIT #: [id number] AGE: [address]: Gigi Oakley SEX: M ORDER DR: [id number] [facility] [address] [place], [place] [address] [id number] E MR#: [id number] Acc #: [id number] NAME: JASMINA MOTA : 1970 SEX: M STUDY DATE/TIME: 04/17/2017 14:36 UNIT: [facility] ROOM: STUDY DESCRIPTION: [employer] Attending Physician: Gigi Oakley R.N. Ordering Physician: Gigi Oakley R.N. MEDICAL IMAGING REPORT This report is preliminary unless electronic signature is present EXAM Left lower extremity Doppler venous ultrasound 04/17/2017 HISTORY Left lower straight pain, redness and swelling. Symptoms present for 3 days. No known injury. COMPARISON None. TECHNIQUE Venous ultrasound examination of the left lower extremity was performed using grayscale, spectral Doppler and color flow Doppler imaging. FINDINGS The examination is negative. There is no evidence of left lower extremity deep venous thrombus from the groin to the lower calf. Visualized greater saphenous vein is also patent. IMPRESSION Negative examination. No evidence of left lower extremity deep venous thrombosis. Dictated by... Rula Song M.D. THIS IS AN ELECTRONICALLY VERIFIED REPORT Rula Song M.D. at 04/18/2017 1:53 PM LLH/pcl TD: 04/17/2017 20:11 JOB #: [id number] [facility] A Service [facility] RADIOLOGY TEXT RESULTS PATIENT: JASMINA MOTA LOCATION: [facility] : [birth year] UNIT #: [id number] AGE: [address]: Gigi Oakley SEX: M ORDER DR: MEDICAL IMAGING REPORT Page 1 of 1 COPY
[2017-04-17 14:42] LABS: BASOPHIL% 0.5 % (0-2.5); EOSINOPHIL# 0.2 X10e3 (0-0.7); HEMATOCRIT 39.7 % (38.0-50.0); HEMOGLOBIN 12.8 gm/dL (13.0-16.0); LYMPHOCYTE# 1.7 X10e3 (1.0-3.5); MEAN CELL VOLUME 73.8 FL (83-96); MEAN CORPUSCULAR HEMOGLOBIN 23.8 PG (28-34); MEAN CORPUSCULAR HGB CONC 32.3 g/dL (30-36); MONOCYTE# 1.2 X10e3 (0-1.0); MONOCYTE% 13.8 % (3.0-12.0); NEUTROPHIL# 5.8 X10e3 (1.5-7.1); NEUTROPHIL% 64.7 % (40-75); PLATELET COUNT 288 X10e3 (140-420); RED BLOOD COUNT 5.37 X10e (3.90-5.60); RED CELL DISTRIBUTION WIDTH 17.1 % (11.0-15.5); WHITE BLOOD COUNT 8.9 X10e3 (4.0-10.5)
[2017-04-17 14:55] LABS: DIFF IND NO
== END 2017-04-17 15:50 | disposition home or self-care (01) ==
LOC: CED 11:21 → CFTX 11:21
PROVIDERS: Nurse Practitioner
DX: M25.571 Pain in right ankle and joints of right foot (principal); I10 Essential (primary) hypertension; J45.909 Unspecified asthma, uncomplicated; Z86.19 Personal history of other infectious and parasitic diseases; Z88.8 Allergy status to other drugs, medicaments and biological substances
CPT/HCPCS: 36415; 85025; 85730; 93971; 99284